=== PATIENT | female | born 1985 | race Two or more races ===

== ENCOUNTER 2025-01-16 15:28 | Emergency (ER) | payer SELFPAY ==
--- NOTE | 2025-01-16 15:56 | XR_ITS ---
Examination: Complete OB ultrasound greater than 14 weeks Date and time of exam: January 16, 2025 1611 hours INDICATIONS: Onset vaginal bleeding today Findings: Viable intrauterine single fetus with single amniotic sac presentation cephalic Cardiac motion 144 BPM Placenta posterior low lying grade 1 Umbilical cord insertion seen Amniotic fluid index 8.9 cm Cervix 3.6 cm Right ovary 2.5 cm arterial flow Left ovary 2.6 cm arterial flow. Composite estimated gestational age based on BPD, head circumference, abdominal circumference, femur length is 17 weeks 4 days Estimated weight 194.7 g. Survey of intracranial anatomy, spinal anatomy, abdominal anatomy, four-chamber heart performed with no abnormalities identified. Impression: Viable intrauterine gestation cephalic presentation.
[2025-01-16 15:58] VITALS: BP 126/81; PULSE 80; RESP 18; TEMP 36.8; O2SAT 98
[2025-01-16 15:59] VITALS: BMI 26.9
--- NOTE | 2025-01-16 16:17 | PD.EDVAGBL ---
ED OB Contraction Preg RMI/HPI General Chief complaint: Vaginal Bleeding Stated complaint: Vaginal bleeding today, 16 weeks OB Arrival date/time: 01/16/25 15:28 RME / HPI RME / HPI Narrative: DR. MCPHERSON MAIN ED EVALUATION: This section includes all my notes and documentations, including HPI, PE, and ED course.? Marcos Mcpherson MD HPI: 39 year old female who is ~16 weeks here with complaint of vaginal spotting today. No other complaints. ROS: All negative except as documented in HPI. Physical Exam: General:? Alert and oriented.? No acute distress when remaining still.? Eyes:? Conjunctivae and lids clear. ENT:? No nasal congestion.? ? Neck:? Supple. Heart:? RRR. Lungs:? No respiratory distress.? Good air movement.? No rhonchi, wheezing, rales.? Abdomen:? Soft and nontender.? Skin:? Warm and dry.? Neuro:? Alert and oriented X 3.? I reviewed all diagnostic test results. My review of the OB US report is?viable intrauterine . Blood tests unremarkable. UA showed positive leukocyte Estrace, 310 RBC, 412 WBC, and 1+ bacteria. At this point, diagnoses include threatened miscarriage and UTI. Recommend outpatient management. Based on my best medical judgment, made decision no further evaluation or treatment indicated at this time.? Patient understands and agrees to the discharge instructions customized and printed, see below. Discharge Instructions from Dr. Mcpherson printed for you: 1.? After evaluation, your baby is doing well with good cardiac activity. You have urinary tract infection. Hopefully this caused the bleeding. Take Macrobid to kill the germs causing the infection. Increase oral fluid and maintain clear urine. If dark or yellow, increase oral fluid. 2.? Based on ultrasound today, gestational age is 17 4/7 weeks. 3.? Only time will tell what will happen. If your symptoms, including bleeding, worsen, you can have a miscarriage. If your symptoms stop, you can have successful . 4.? If you do have a miscarriage, we won't be able to save your baby. Under 20-24 weeks, we can't save the baby. 5.? No sexual activity until cleared by a doctor taking care of you. 6.? See a private doctor on 01/20/2025 for recheck and further care. Ask to review all test results and official radiology reports, to make sure you receive all necessary follow-ups and monitoring. Including final urine culture results. 7.? Seek immediate medical care with intolerable pain, extremely heavy vaginal bleeding (soaking more than 3 pads per hour), or with any concerns. Instrucciones de michael de la Dra. Mcpherson impresas para usted: 1. Despu?s de la evaluaci?n, shepherd beb? se encuentra tarik y presenta raven buena actividad card?ney. Tiene raven infecci?n del tracto urinario. Es de esperar que esto haya causado el sangrado. [place] Macrobid para eliminar los g?rmenes que causan la infecci?n. Aumente la cantidad de l?quidos orales y mantenga la orina bryon. Si es oscura o amarilla, aumente la cantidad de l?quidos orales. 2. Seg?n la ecograf?a de hoy, la edad gestacional es de 17 4/7 semanas. 3. Solo el tiempo dir? qu? suceder?. Si derian s?ntomas, incluido el sangrado, empeoran, podr?a sufrir un aborto espont?lius. Si derian s?ntomas desaparecen, puede tener un embarazo exitoso. 4. Si sufre un aborto espont?luis, no podremos salvar a shepherd beb?. Antes de las 20-24 semanas, no podremos salvar al beb?. 5. No tenga relaciones sexuales hasta que el m?dico que la atienda lo autorice. 6. Consulte con un m?dico particular el 20/01/2025 para raven nueva revisi?n y atenci?n adicional. Solicite la revisi?n de todos los resultados de las pruebas y los informes radiol?gicos oficiales para asegurarse de recibir todos los seguimientos y monitoreo necesarios. Incluidos los resultados finales del urocultivo. 7. Busque atenci?n m?dica inmediata si presenta dolor insoportable, sangrado vaginal extremadamente abundante (que empape m?s de 3 toallas sanitarias por hora) o si tiene alguna inquietud. Marcos Mcpherson MD Related Data Previous Rx's ?Medication ?Instructions ?Recorded ciprofloxacin HCl 500 mg tablet 500 mg PO BID #10 tabs 07/23/19 (Cipro) nitrofurantoin 100 mg PO BID #14 caps 01/16/25 monohydrate/macrocrystals 100 mg capsule (Macrobid) Allergies Allergy/AdvReac Type Severity Reaction Status Date / Time No Known Allergies Allergy Verified 01/16/25 15:32 Course Quality Measures none Orders Category Date Time Status US OB >= 14 weeks Fetus Stat Exams 01/16/25 15:56 Completed Beta HCG,Quantitative Stat Lab 01/16/25 16:33 Completed Bilirubin,Direct Stat Lab 01/16/25 16:33 Completed CBC Stat Lab 01/16/25 16:33 Completed CMP [Comprehensive Metabolic Panel] Stat Lab 01/16/25 16:33 Completed Free T4 (Free Thyroxine) Stat Lab 01/16/25 16:33 Completed Magnesium Stat Lab 01/16/25 16:33 Completed Rh Testing Only Stat Lab 01/16/25 16:33 Completed TSH [Thyroid Stimulating Hormone] Stat Lab 01/16/25 16:33 Completed UA, C/S IF [Urinalysis, C/S if Indicated] Stat Lab 01/16/25 16:14 Completed Nitrofurantoin Macro [Macrobid] Med 01/16/25 17:15 Discontinued 100 mg PO X1 ONE Vital Signs Vital signs: Vital Signs Temperature 98.2 F 01/16/25 15:58 Pulse Rate 80 01/16/25 15:58 Respiratory Rate 18 01/16/25 15:58 Blood Pressure 126/81 01/16/25 15:58 Pulse Oximetry (%) 98 01/16/25 15:58 Oxygen Delivery Method Room Air 01/16/25 15:58 Vaginal Bleeding MDM Narrative MDM Narrative: I, Shanon Steward, am scribing for and in the presence of Dr. Mcpherson. 39 year old female who is ~16 weeks here with complaint of vaginal spotting today. No other complaints. Patient data External records reviewed:: [facility] previous records Clinical information provided by:: patient Social determinants that could affect healthcare access:: none Patient has the following chronic illnesses:: Kidney stones How is presenting disease/condition affected by chronic disease/condition?: uneffected by Evaluation data The following diagnostics were reviewed and interpreted by me:: lab results and radiology exam(s) Lab and/or radiology exams considered but not ordered:: none Interpretation Summary: I reviewed all diagnostic test results. My review of the OB US report is?viable intrauterine . Blood tests unremarkable. UA showed positive leukocyte Estrace, 310 RBC, 412 WBC, and 1+ bacteria. Medications / Prescriptions Medications or Prescriptions considered but not ordered:: none Medication administrations:: Medication Administration History Discontinued Medications Nitrofurantoin Macrocrystals (Nitrofurantoin Macro 100 Mg Capsule) 100 mg PO X1 ONE Stop: 01/16/25 17:16 Last Admin: 01/16/25 17:39 Dose: 100 mg Documented By: Macrobid 100 mg Consultations Consultation(s) initiated? (list below): No Diagnosis Vaginal Bleeding Differential Diagnosis: missed , threatened , dysfunctional uterine bleeding, menometrorrhagia, incomplete , ectopic without intrauterine and vaginal bleeding Most likely diagnosis given after review of the tests above:: Threatened miscarriage and UTI Admission Indicated Admission indicated?: not indicated Explain why admission is indicated or not indicated:: With no serious condition needing emergent intervention, there was no indication for admission. Admission Request Was there a request for admission?: No Disposition Plan Disposition Plan: Discharge Discharge Attestation Discharge Attestation: The patient and all family members were given an opportunity to ask questions and understood the discharge instructions. Discharge instructions specifically effects, indications for sooner follow up or return to the emergency department, and the expected course of current diagnosis. Patient condition: Stable Discharge Plan Plan Patient Disposition: HOME (Self Care) Prescriptions/Referrals Prescriptions/Med Rec: New nitrofurantoin monohyd/m-cryst [Macrobid] 100 mg capsule 100 mg PO BID Qty: 14 0RF Rx Instructions: must administer with a meal/food No Action ciprofloxacin HCl [Cipro] 500 mg tablet 500 mg PO BID Qty: 10 0RF Referrals: Jeronimo Conde MD [Primary Care Provider] - In 1 week Problem List Clinical Impression: Threatened miscarriage, UTI (urinary tract infection) Patient/Caregiver Discharge Instructions Discharge Activity: activity as tolerated Education Materials: ED Possible Miscarriage ..., ED CYSTITIS Female Adult Additional Instructions: Discharge Instructions from Dr. Mcpherson printed for you: 1.? After evaluation, your baby is doing well with good cardiac activity. You have urinary tract infection. Hopefully this caused the bleeding. Take Macrobid to kill the germs causing the infection. Increase oral fluid and maintain clear urine. If dark or yellow, increase oral fluid. 2.? Based on ultrasound today, gestational age is 17 4/7 weeks. 3.? Only time will tell what will happen. If your symptoms, including bleeding, worsen, you can have a miscarriage. If your symptoms stop, you can have successful . 4.? If you do have a miscarriage, we won't be able to save your baby. Under 20-24 weeks, we can't save the baby. 5.? No sexual activity until cleared by a doctor taking care of you. 6.? See a private doctor on 01/20/2025 for recheck and further care. Ask to review all test results and official radiology reports, to make sure you receive all necessary follow-ups and monitoring. Including final urine culture results. 7.? Seek immediate medical care with intolerable pain, extremely heavy vaginal bleeding (soaking more than 3 pads per hour), or with any concerns. Instrucciones de michael de brittanie Mcpherson impresas para usted: 1. Despu?s de la evaluaci?n, shepherd beb? se encuentra tarik y presenta raven buena actividad card?ney. Tiene raven infecci?n del tracto urinario. Es de esperar que esto haya causado el sangrado. [place] Macrobid para eliminar los g?rmenes que causan la infecci?n. Aumente la cantidad de l?quidos orales y mantenga la orina bryon. Si es oscura o amarilla, aumente la cantidad de l?quidos orales. 2. Seg?n la ecograf?a de hoy, la edad gestacional es de 17 4/7 semanas. 3. Solo el tiempo dir? qu? suceder?. Si derain s?ntomas, incluido el sangrado, empeoran, podr?a sufrir un aborto espont?luis. Si derian s?ntomas desaparecen, puede tener un embarazo exitoso. 4. Si sufre un aborto espont?luis, no podremos salvar a shepherd beb?. Antes de las 20-24 semanas, no podremos salvar al beb?. 5. No tenga relaciones sexuales hasta que el m?dico que la atienda lo autorice. 6. Consulte con un m?dico particular el 20/01/2025 para raven nueva revisi?n y atenci?n adicional. Solicite la revisi?n de todos los resultados de las pruebas y los informes radiol?gicos oficiales para asegurarse de recibir todos los seguimientos y monitoreo necesarios. Incluidos los resultados finales del urocultivo. 7. Busque atenci?n m?dica inmediata si presenta dolor insoportable, sangrado vaginal extremadamente abundante (que empape m?s de 3 toallas sanitarias por hora) o si tiene alguna inquietud. Print Language: Thai Stand Alone Forms: [employer] Award Info., Patient Portal Info Letter
[2025-01-16 16:33] LABS: Collection Type, Urine Clean Catch
[2025-01-16 16:46] LABS: Bacteria,Urine 1+; Bilirubin,Urine Negative (Negative); Blood,Urine 3+ (Negative); Clarity,Urine Turbid (Clear/Hazy); Culture Indicated,Urine Contaminated; Glucose, Urine Negative (Negative); Ketones,Urine Trace (Negative); Leukocyte Esterase,Urine Positive (Negative); Nitrite,Urine Negative (Negative); Protein,Urine 1+ (Neg - Trace); RBC,Urine 310 /hpf (0-3); Specific Gravity,Urine 1.024 (1.001-1.035); Squamous Epithelial Cell,Urine 22 /hpf (0-5); Urobilinogen,Urine Negative mg/dL (0.0-1.0); WBC,Urine 412 /hpf (0-5)
[2025-01-16 16:48] LABS: Basophils % (Auto) 0 % (0-2.5); Eosinophils # (Auto) 0.1 Thou/mm3 (0.0-0.5); Eosinophils % (Auto) 1 % (0-10); Hematocrit 35.2 % (36.0-46.0); Hemoglobin 12.1 g/dL (12.0-16.0); Immature Granulocytes % (Auto) 1 % (0-0); Immature Granulocytes Auto 0.07 Thou/mm3 (0.00-0.00); Lymphocytes # (Auto) 2.5 Thou/mm3 (1.0-4.8); Lymphocytes % (Auto) 24 % (10-50); Mean Corpuscular HGB Conc 34.4 g/dl (31.0-37.0); Mean Corpuscular Hemoglobin 28.8 pg (25.0-35.0); Mean Corpuscular Volume 84 fL (80-100); Monocytes # (Auto) 0.5 Thou/mm3 (0.0-0.8); Monocytes % (Auto) 5 % (0-12); Neutrophils # (Auto) 7.1 Thou/mm3 (1.8-7.7); Neutrophils % (Auto) 69 % (37-80); Nucleated Red Blood Cell % 0 /100 WBC (0); Platelet Count 233 Thou/mm3 (140-440); RDW Standard Deviation 40.8 fL (36.4-46.3); White Blood Count 10.2 Thou/mm3 (3.6-11.0)
[2025-01-16 16:50] LABS: Color,Urine Amber (Lt Yel-Yel)
[2025-01-16 17:39] LABS: Alanine Aminotransferase 12 U/L (10-49); Albumin, Serum 3.9 gm/dL (3.5-5.0); Albumin/Globulin Ratio 1.5 (1.2-2.2); Alkaline Phosphatase 67 U/L (46-116); Anion Gap 9 (7-16); Aspartate Amino Transferase 16 U/L (0-34); BUN/Creatinine Ratio 14 Ratio (12-20); Beta HCG,Quantitative 30724 mIU/mL (<5.0); Bilirubin,Direct < 0.1 mg/dL (0.0-0.3); Bilirubin,Total 0.3 mg/dL (0.3-1.2); Blood Urea Nitrogen 7 mg/dL (9-23); Calcium (Corrected) 9.1 mg/dL (8.5-10.1); Carbon Dioxide 20.9 mMol/L (20.0-31.0); Chloride 108 mMol/L (98-107); Creatinine (Component) 0.5 mg/dL (0.6-1.3); Estimated Creatinine Clearance 142.1 mL/min (>60); Free T4 (Free Thyroxine) 0.91 ng/dL (0.89-1.76); Globulin 2.6 gm/dL (2.3-3.5); Glucose 83 mg/dL (74-106); Magnesium 1.6 mg/dL (1.6-2.6); Osmolality,Calculated 272 (275-295); Potassium 3.5 mMol/L (3.4-5.1); Sodium 138 mMol/L (136-145); Thyroid Stimulating Hormone 1.68 uIU/mL (0.55-4.78); Total Protein 6.5 gm/dL (5.7-8.2); eGFR > 60 See Note
[2025-01-16] MEDS: NITROFURANTOIN MACRO 100 MG CAPSULE PO (17:39)
== END 2025-01-16 18:38 | disposition home or self-care (01) ==
PROVIDERS: Emergency Provider Emergency Medicine; PCP Obstetrics & Gynecology
DX: O20.0 Threatened abortion (principal); O23.42 Unspecified infection of urinary tract in pregnancy, second trimester; N39.0 Urinary tract infection, site not specified; Z3A.17 17 weeks gestation of pregnancy
CPT/HCPCS: 36415; 76805; 80053; 81001; 82248; 83735; 84439; 84443; 84702; 85025; 86901; 99284; A9270

== ENCOUNTER 2025-02-22 18:41 | Emergency (ER) | payer MEDICAID, SELFPAY ==
[2025-02-22 18:51] VITALS: BP 132/85; PULSE 96; RESP 18; TEMP 37.3; O2SAT 98
[2025-02-22] MEDS: ACETAMINOPHEN 325 MG TABLET 650 MG PO (19:20)
[2025-02-22] MEDS: AMOXICILLIN 250 MG CAPSULE 500 MG PO (19:20)
--- NOTE | 2025-02-22 20:21 | PD.EDDENTL ---
ED Dental RME/HPI General Chief complaint: Dental/Oral/Throat Stated complaint: LEFT TOOTH PAIN x 3 DAYS Time Seen by Provider: 02/22/25 18:45 Arrival date/time: 02/22/25 18:41 This is a case of 39-year-old female who came into the emergency room due to left upper dental pain for 3 days patient is 20 weeks 7 para 6 with regular checkup patient has no OB symptoms no vaginal discharge no pelvic cramping no vaginal spotting or bleeding persistent of dental pain this patient decided to sought consult in the emergency room Limitations: no limitations Related Data Previous Rx's ?Medication ?Instructions ?Recorded ciprofloxacin HCl 500 mg tablet 500 mg PO BID #10 tabs 07/23/19 (Cipro) nitrofurantoin 100 mg PO BID #14 caps 01/16/25 monohydrate/macrocrystals 100 mg capsule (Macrobid) acetaminophen 325 mg tablet 650 mg (2 x 325 mg) PO Q6H PRN 02/22/25 (Tylenol) pain #20 tabs amoxicillin 500 mg capsule 500 mg PO Q8H 10 days #30 caps 02/22/25 Allergies Allergy/AdvReac Type Severity Reaction Status Date / Time No Known Allergies Allergy Verified 02/22/25 18:44 Review of Systems Review of Systems Systems Reviewed: All systems reviewed, normal except as documented Constitutional Constitutional: Reports system reviewed and no additional complaints, except as documented, Reports as per HPI and Denies headache(s) ENT Ears, Nose, Mouth, and Throat: Reports system reviewed and no additional complaints, except as documented, Reports as per HPI, Denies abnormal hearing, Denies bleeding gums, Denies change in voice, Reports dental pain, Denies disequilibrium, Denies dizziness, Denies dry mouth, Denies dysphagia, Denies ear discharge, Denies otalgia, Denies epistaxis, Denies facial pain, Denies halitosis, Denies headache(s), Denies hearing loss, Denies hoarseness, Denies lip swelling, Denies mouth lesions, Denies mouth pain, Denies nasal congestion, Denies nasal discharge, Denies nasal obstruction, Denies nasal trauma, Denies neck mass, Denies neck pain, Denies nose pain, Denies odynophagia, Denies post nasal drip, Denies sinus pain, Denies sinus pressure, Denies sore throat, Denies throat swelling, Denies tinnitus, Denies tongue swelling and Denies vertigo Cardiovascular Cardiovascular: Reports system reviewed and no additional complaints, except as documented and Reports as per HPI Respiratory Respiratory: Reports system reviewed and no additional complaints, except as documented and Reports as per HPI Gastrointestinal Gastrointestinal: Reports system reviewed and no additional complaints, except as documented, Reports as per HPI, Denies dysphagia and Denies odynophagia Musculoskeletal Musculoskeletal: Reports system reviewed and no additional complaints, except as documented, Reports as per HPI and Denies neck pain Neurologic Neurologic: Reports system reviewed and no additional complaints, except as documented, Reports as per HPI, Denies abnormal hearing, Denies disequilibrium, Denies dizziness, Denies headache(s) and Denies vertigo Allergic/Immunologic Allergic/Immunologic: Denies lip swelling, Denies throat swelling and Denies tongue swelling Past Medical History Past Medical History NEUROLOGIC: Negative Neurological Disorders CARDIAC: Negative Cardiac Disorders or Congestive Heart Failure RESPIRATORY: Negative Chronic Obstructive Pulmonary Disease (COPD) GASTROINTESTINAL: Negative Gastrointestinal Disorders or Hepatitis GENITOURINARY: Positive Genitourinary Disorders and Kidney Stones (bilateral x2); Negative Renal Disease MUSCULOSKELETAL: Negative Musculoskeletal Disorders ENDOCRINE: Negative Endocrine Disorders, Diabetes Mellitus Type 1 or Diabetes Mellitus Type 2 HEMATOLOGIC: Negative Blood Disorders OTHER HISTORY: Positive Hospitalization; Negative Autoimmune Disease, Down Syndrome, Developmental Delay, Shingles, Falls, Blood Transfusions, Organ Transplant, MRSA, VRSA, Vancomycin-Resistant Enterococci, Human Immunodeficiency Virus (HIV), Chicken Pox, Measles, Mumps, Rubella (Upper Sor[place] Measles), Pertussis, Clostridium Difficile or Cancer Family History FAMILY HISTORY: Negative Family Psychiatric Problems, Family Respiratory Disorders, Family Cardiac Disorders, Family Gastrointestinal Problems, Family Cancer, Family Surgery or Family Anesthesia Reaction Surgical History SURGICAL: Negative Cardiac Surgery, Endocrine Surgery, Ear Surgery, Abdominal Surgery, Nephrectomy, Joint Replacement, Neurologic Surgery, Mastectomy, Section or Organ Transplant Social History SMOKING STATUS: Never smoker SUBSTANCE USE: does not use ED Exam General Limitations: Present no limitations General appearance: Present alert, in no apparent distress and other (Is awake alert oriented not in distress nontoxic looking) Head Head exam: Present atraumatic, normocephalic and normal inspection Eye Eye exam: Present normal appearance, PERRL and EOMI ENT ENT exam: Present normal exam, normal oropharynx and mucous membranes moist Expanded ENT Exam Teeth exam: Present dental caries (16), fractured tooth # (16) and dental tenderness # (16); Absent gingival swelling Teeth numbered:  1. Fractured (Tooth #16), Dental Tenderness (Tooth #16) and Other (Mild tenderness on the tooth #16 mild swelling of the gum but no abscess mild redness) Neck Neck exam: Present normal inspection, full ROM and trachea midline Chest Chest inspection: Present normal inspection and symmetric chest wall rise Respiratory Respiratory exam: Present normal lung sounds bilaterally; Absent respiratory distress, wheezes, stridor, accessory muscle use or prolonged expiratory phase Cardiovascular Cardiovascular exam: Present regular rate and normal rhythm; Absent bradycardia, tachycardia, irregular rhythm or normal heart sounds Abdominal Exam Abdominal exam: Present soft, normal bowel sounds and other (Gravid uterus) Extremities Exam Extremities exam: Present normal inspection and full ROM Back Exam Back exam: Present normal inspection and full ROM Neurological Exam Neurological exam: Present alert, oriented X3, CN II-XII intact, normal gait and reflexes normal; Absent motor sensory deficit Psychiatric Psychiatric exam: Present normal affect and normal mood Skin Skin exam: Present warm, dry, intact and normal color Course Quality Measures none Orders Category Date Time Status Acetaminophen Tab [Tylenol Tab] Med 02/22/25 19:08 Discontinued 650 mg PO X1 ONE Amoxicillin Cap [Amoxil Cap] Med 02/22/25 19:08 Discontinued 500 mg PO X1 ONE Vital Signs Vital signs: Vital Signs Temperature 99.1 F 02/22/25 18:51 Pulse Rate 96 02/22/25 18:51 Respiratory Rate 18 02/22/25 18:51 Blood Pressure 132/85 H 02/22/25 18:51 Pulse Oximetry (%) 98 02/22/25 18:51 Oxygen Delivery Method Room Air 02/22/25 18:51 Patient is afebrile not tachycardic not tachypneic BP stable not hypoxic oxygen saturation is 98% in room air Dental / Oral MDM Narrative MDM Narrative:: This is a case of 39-year-old female who came into the emergency room due to left upper dental pain for 3 days patient is 20 weeks 7 para 6 with regular checkup patient has no OB symptoms no vaginal discharge no pelvic cramping no vaginal spotting or bleeding persistent of dental pain this patient decided to sought consult in the emergency room physical examination patient is awake alert oriented not in distress nontoxic looking well-hydrated well-nourished gravid uterus patient noted to have a tenderness on the tooth #16 with fracture tooth #16 and dental cavity gum is slightly swollen and red but no abscess no swelling of the left mandible no facial swelling no drooling of saliva the rest of the physical examination and neurological exam is normal and unremarkable based on my physical exam and history patient symptoms suggestive of tooth infection but no abscess patient was discharged with amoxicillin and patient was advised to take Tylenol only for pain which is safe for patient was advised to see a dentist for reevaluation and for dental procedure and follow-up with OB for checkup patient will follow-up with PCP in 2 days for reevaluation and for any worsening symptoms return precaution in the emergency room was advised Patient was discharged with comfortable condition walking with stable gait. Patient verbalized no further complains explained diagnosis and answered patient question. Patient is comfortable with the proposed management plan including the need to follow up with his/her primary care physician and any specialist if applicable Discussed patient for any urgent condition or worsening sx, He/She needed to go to emergency room immediately or call 911. Patient acknowledge the responsibility to follow up as instructed and to monitor her/his symptoms. For any persistence of the symptoms for more than 3-5 days return precaution advised. Discussed the result of the test and was given printed discharge instruction Patient data External records reviewed:: [facility] previous records Clinical information provided by:: patient Social determinants that could affect healthcare access:: none (None) Patient has the following chronic illnesses:: None How is presenting disease/condition affected by chronic disease/condition?: no chronic disease Evaluation data The following diagnostics were reviewed and interpreted by me:: other (specify) (None) Lab and/or radiology exams considered but not ordered:: None Interpretation Summary: None Medications / Prescriptions Medications or Prescriptions considered but not ordered:: Given Medication administrations:: Medication Administration History Discontinued Medications Acetaminophen (Acetaminophen 325 Mg Tablet) 650 mg PO X1 ONE Stop: 02/22/25 19:09 Last Admin: 02/22/25 19:20 Dose: 650 mg Documented By: OA Amoxicillin (Amoxicillin 250 Mg Capsule) 500 mg PO X1 ONE Stop: 02/22/25 19:09 Last Admin: 02/22/25 19:20 Dose: 500 mg Documented By: OA Given Consultations Consultation(s) initiated? (list below): No Diagnosis Dental Differential Diagnosis: gingival abscess, dental caries, dental abscess, fracture of tooth and aphthous ulcer Most likely diagnosis given after review of the tests above:: Tooth infection Admission Indicated Admission indicated?: not indicated (Not indicated) Explain why admission is indicated or not indicated:: Not indicated Admission Request Was there a request for admission?: No Admission Attestation Admission request attestation: Not indicated Disposition Plan Disposition Plan: Discharge Discharge Attestation Discharge Attestation: The patient and all family members were given an opportunity to ask questions and understood the discharge instructions. Discharge instructions specifically effects, indications for sooner follow up or return to the emergency department, and the expected course of current diagnosis. Patient condition: Stable Discharge Plan Plan Patient Disposition: HOME (Self Care) Patient condition on transfer: Stable Prescriptions/Referrals Prescriptions/Med Rec: New amoxicillin 500 mg capsule 500 mg PO Q8H 10 Days Qty: 30 0RF acetaminophen [Tylenol] 325 mg tablet 650 mg PO Q6H PRN (Reason: pain) Qty: 20 0RF No Action ciprofloxacin HCl [Cipro] 500 mg tablet 500 mg PO BID Qty: 10 0RF nitrofurantoin monohyd/m-cryst [Macrobid] 100 mg capsule 100 mg PO BID Qty: 14 0RF Rx Instructions: must administer with a meal/food Problem List Clinical Impression: Tooth infection, Fracture of tooth, Patient/Caregiver Discharge Instructions Education Materials: Preg 2nd Trimester, ED Tooth Abscess Additional Instructions: Follow-up with your primary care physician in 2 days for reevaluation it is very important to see a dentist in 2 days for reevaluation and possible dental procedure it is also important to see your OB admissions supervisor for checkup worsening symptoms or any emergent concern such as fever chills vaginal bleeding abdominal pain vaginal spotting vaginal discharge etc. return to the emergency room immediately or call 911 finish the course of antibiotic only Tylenol as needed for pain continue taking multivitamins Print Language: Colombian Stand Alone Forms: [employer] Award Info., Patient Portal Info Letter PA/[employer] HR DEVELOPER Supervising Physician PA/[employer] HR DEVELOPER Supervising Physician: dr barrios
== END 2025-02-22 19:30 | disposition home or self-care (01) ==
PROVIDERS: Emergency Provider Emergency Medicine
DX: O99.891 Other specified diseases and conditions complicating pregnancy (principal); S02.5XXA Fracture of tooth (traumatic), initial encounter for closed fracture; K04.7 Periapical abscess without sinus; X58.XXXA Exposure to other specified factors, initial encounter; Z3A.20 20 weeks gestation of pregnancy
CPT/HCPCS: 99283; A9270

== ENCOUNTER 2025-05-08 20:53 | Observation (INO) | payer MEDICAID, SELFPAY ==
[2025-05-08] VITALS (25 sets, daily range): BP systolic 127–138; BP diastolic 63–81; PULSE 99–112; RESP 16–99; TEMP 37.1; O2SAT 92–100; BMI 34.3
[2025-05-08 21:33] LABS: ROM Kit Exp Date# 01/18/28; ROM Kit Lot # 58104371; ROM Swab Mixed By: KE; Rupture of Fetal Membranes Negative (Negative); Swb Mxed in Solvent 1 min? Yes
--- NOTE | 2025-05-08 21:45 | XR_ITS ---
Examination: Complete OB ultrasound greater than 14 weeks Date and time of exam: May 08, 2025 at 10:11 p.m. INDICATIONS: Leaking amniotic fluid today Findings: Viable intrauterine single fetus with single amniotic sac presentation cephalic Cardiac motion 162 bpm Placenta fundal grade 2 Umbilical cord insertion 3 vessels seen Amniotic fluid index 9.0 cm spine anterior Cervix 3.1 cm. Composite estimated gestational age based on BPD, head circumference, abdominal circumference, femur length is 33 weeks 6 days Estimated weight 2263 g. Survey of intracranial anatomy, spinal anatomy, abdominal anatomy, four-chamber heart performed with no abnormalities identified. Impression: Viable intrauterine gestation in cephalic presentation
[2025-05-08 22:36] LABS: Collection Type, Urine Clean Catch
[2025-05-08 22:38] LABS: Basophils # (Auto) 0.0 Thou/mm3 (0.0-0.2); Basophils % (Auto) 0 % (0-2.5); Eosinophils # (Auto) 0.1 Thou/mm3 (0.0-0.5); Eosinophils % (Auto) 1 % (0-10); Hematocrit 35.0 % (36.0-46.0); Hemoglobin 11.7 g/dL (12.0-16.0); Immature Granulocytes Auto 0.10 Thou/mm3 (0.00-0.00); Lymphocytes # (Auto) 2.3 Thou/mm3 (1.0-4.8); Lymphocytes % (Auto) 25 % (10-50); Mean Corpuscular HGB Conc 33.4 g/dl (31.0-37.0); Mean Corpuscular Hemoglobin 29.3 pg (25.0-35.0); Mean Corpuscular Volume 88 fL (80-100); Monocytes # (Auto) 0.6 Thou/mm3 (0.0-0.8); Monocytes % (Auto) 7 % (0-12); Neutrophils # (Auto) 6.0 Thou/mm3 (1.8-7.7); Neutrophils % (Auto) 66 % (37-80); Nucleated Red Blood Cell # 0.00 Thou/mm3 (0.00-0.00); Nucleated Red Blood Cell % 0 /100 WBC (0); Platelet Count 257 Thou/mm3 (140-440); RDW Standard Deviation 40.9 fL (36.4-46.3); Red Blood Count 4.00 Miln/mm3 (4.00-5.20); White Blood Count 9.1 Thou/mm3 (3.6-11.0)
[2025-05-08] MEDS: BETAMET ACET/BETAMET NA PH (Celestone) 6 MG/ML VIAL 12 MG IM (22:41)
[2025-05-08] MEDS: RINGERS LACTATED 1000 ML 1,000 ML 100 ML IV (22:42)
[2025-05-08] MEDS: Ampicillin Inj 2,000 MG in SODIUM CHLORIDE 0.9% (POP) 100 ML 200 MG IV (22:42)
[2025-05-08 22:48] LABS: Amorphous Crystals,Urine Present (Absent); Bacteria,Urine Rare; Bilirubin,Urine Negative (Negative); Blood,Urine Negative (Negative); Budding Yeast,Urine Present; Clarity,Urine Turbid (Clear/Hazy); Color,Urine Lt-Yellow (Lt Yel-Yel); Glucose, Urine Negative (Negative); Ketones,Urine Negative (Negative); Leukocyte Esterase,Urine Positive (Negative); Nitrite,Urine Negative (Negative); PH,Urine 7.5 (5.0-7.0); Protein,Urine Negative (Neg - Trace); RBC,Urine 8 /hpf (0-3); Specific Gravity,Urine 1.010 (1.001-1.035); Squamous Epithelial Cell,Urine 3 /hpf (0-5); Urobilinogen,Urine Negative mg/dL (0.0-1.0); WBC,Urine 98 /hpf (0-5)
[2025-05-08 22:54] LABS: Alanine Aminotransferase 8 U/L (10-49); Albumin, Serum 4.0 gm/dL (3.5-5.0); Albumin/Globulin Ratio 1.3 (1.2-2.2); Alkaline Phosphatase 109 U/L (46-116); Anion Gap 11 (7-16); Aspartate Amino Transferase 18 U/L (0-34); BUN/Creatinine Ratio 10 Ratio (12-20); Bilirubin,Total 0.2 mg/dL (0.3-1.2); Blood Urea Nitrogen 6 mg/dL (9-23); Calcium 9.4 mg/dL (8.3-10.6); Calcium (Corrected) 9.4 mg/dL (8.5-10.1); Carbon Dioxide 21.8 mMol/L (20.0-31.0); Chloride 107 mMol/L (98-107); Creatinine (Component) 0.6 mg/dL (0.6-1.3); Estimated Creatinine Clearance 110.1 mL/min (>60); Globulin 3.0 gm/dL (2.3-3.5); Glucose 105 mg/dL (74-106); Osmolality,Calculated 277 (275-295); Potassium 3.4 mMol/L (3.4-5.1); Sodium 140 mMol/L (136-145); Total Protein 7.0 gm/dL (5.7-8.2); eGFR > 60 See Note
[2025-05-08 22:58] LABS: Amphetamine/Metham Scrn,Ur OB Negative (Negative); Benzoylecgonine Screen, Ur OB Negative (Negative); Opiate Screen,Urine OB Negative (Negative); Protein Total, Random Urine 17 mg/dL (1-14); THC Screen,Urine OB Negative (Negative)
[2025-05-08 23:31] LABS: Syphilis Nonreactive (Nonreactive)
[2025-05-08 23:40] LABS: Creatinine,Random Urine 41 mg/dL (30-125)
[2025-05-09] VITALS (126 sets, daily range): BP systolic 103–141; BP diastolic 54–80; PULSE 87–130; RESP 16–18; TEMP 36.5–37.4; O2SAT 91–100
--- NOTE | 2025-05-09 01:57 | PD.LDANTE ---
Documentation for date of: 05/09/25 OB Labor/Induct. HPI History of Present Illness Chief complaint: c/o SROM : 6 Para: 6 Term pregnancies: 5 pregnancies: 0 Living children: 5 History of Abortions: Spontaneous and Elective: 0 History of Vaginal deliveries: 6 History of sections: No History of : No CYNDI: 06/19/25 Gestational Age (weeks): 34 Gestational Age (days): 1 History of present illness: patient has Grossly SROM History of Present Adequate Care: Yes Labs Maternal Blood Type: O Pos Labs: Negative: RPR, Hepatitis B, Rubella Titre, HIV, Chlamydia and Gonorrhea and Unknown: Herpes Type 1, Herpes Type 2, Group Beta Strep and Covid-19 Review of Systems Review of Systems Systems Reviewed: All systems reviewed, normal except as documented Past Medical History Past Medical History GENITOURINARY: Positive Kidney Stones Surgical History SURGICAL: Negative Section Social History SMOKING STATUS: Never smoker SUBSTANCE USE: does not use ALCOHOL: Never Travel History EBOLA RISK: No Past Medical History Comments PMH COMMENT: Advanced maternal age and Grand multipara H/o kidney stones and hydronephrosis Meds Home Medications and Allergies Home Medications ?Medication ?Instructions ?Recorded ?Confirmed ?Type vit no.95-ferrous 1 tab PO DAILY 05/08/25 05/08/25 History fumarate 28 mg-folic acid 800 mcg tablet () Allergies Allergy/AdvReac Type Severity Reaction Status Date / Time No Known Allergies Allergy Verified 05/08/25 21:23 OB Exam Physical Exam Vital signs: Temp Pulse Resp BP Pulse Ox 98.5 F 113 H 16 126/62 98 05/09/25 00:35 05/09/25 01:13 05/09/25 00:35 05/09/25 01:13 05/09/25 01:54 Narrative: Size equal to dates uterus non tender Occasional/ contractions non tender FHR is category 1 feta presentation is vertex/ breech/transverse OB Results Labs 05/08/25 22:17 05/08/25 22:17 Labs: Short CBC 05/08/25 Range/Units 22:17 WBC 9.1 (3.6-11.0) Thou/mm3 Hgb 11.7 L (12.0-16.0) g/dL Hct 35.0 L (36.0-46.0) % Plt Count 257 (140-440) Thou/mm3 BMP 05/08/25 22:17 Sodium 140 Potassium 3.4 Chloride 107 Carbon Dioxide 21.8 BUN 6 L Creatinine 0.6 Glucose 105 Calcium 9.4 Liver Function 05/08/25 Range/Units 22:17 Total Bilirubin 0.2 L (0.3-1.2) mg/dL AST 18 (0-34) U/L ALT 8 L (10-49) U/L Alkaline Phosphatase 109 (46-116) U/L Albumin 4.0 (3.5-5.0) gm/dL Urine 05/08/25 Range/Units 22:17 Urine Color Lt-Yellow (Lt Yel-Yel) Urine Clarity Turbid A (Clear/Hazy) Urine pH 7.5 H (5.0-7.0) Ur Specific Morris 1.010 (1.001-1.035) Urine Protein Negative (Neg - Trace) Urine Glucose (UA) Negative (Negative) Impressions Impression: 39 years old at 34.2 weeks AMA, Grossly SROM at 2020 on 05/08/2025 and has occasional contractions / PPROM at 34.1 weeks Bpis at 138/80's and PE labs are negative Started on procardia 10 mgm po q 4 hours and betamethasone for lung maturity and Ampicillin for prophylaxis . after the second dose of betamethasone , plan/consider delivery OB Assessment & Plan Assessment and Plan (1) premature rupture of membranes (PPROM) with unknown onset of labor: Status: Acute (2) Advanced maternal age (AMA) in : Status: Acute (3) Grand multiparity with problem: Status: Acute Additional Plan Additional Plan Comment: see Ob assessment and plan
[2025-05-09] MEDS: Ampicillin Inj 1,000 MG in SODIUM CHLORIDE 0.9% (Popper) 50 ML 50 MG IV (03:16)
--- NOTE | 2025-05-09 07:26 | XR_ITS ---
EXAMINATION: age Limited TECHNIQUE: Limited transabdominal sonographic images pelvis Date and time: May 09, 2025, 0818 hours INDICATIONS: History leaking amniotic fluid FINDINGS: Viable intrauterine gestation in cephalic presentation. Cardiac motion 144 bpm. Amniotic fluid index 10.1 cm IMPRESSION: Viable intrauterine gestation in cephalic presentation Amniotic fluid index 10.1 cm
[2025-05-09 08:07] LABS: ROM Kit Lot # 58106258; ROM Swab Mixed By: FS; Swb Mxed in Solvent 1 min? Yes
[2025-05-09 08:08] LABS: Rupture of Fetal Membranes Negative (Negative)
--- NOTE | 2025-05-09 09:08 | PD.LDPN ---
Documentation for date of: 05/09/25 OB Labor Progress Note Pelvic Exam Dilation (cm): 1 Effacement (%): 40 station: -3 Amniotic membrane status: Intact Contractions Monitor mode: External Contraction frequency: q4-5 Contraction intensity: Mild Status status: Category l Assessment and Plan Comments: I assumed care of Wanda at 0700 this morning. In brief, she is a 39yo with SIUP at 34w2d who presented last night with concern for loss of fluid. She was noted by Dr. Galloway to have gross rupture of membranes , but NIMISHA was 9cm and Amnisure testing was negative. She was started on Ampicillin, Nifedipine and given 1st dose of betamethasone. Overnight, she has continued to state that she is leaking fluid per vagina and RN notes she has had pads changed that smell like urine and are completely soaked with yellow fluid (more than what would be expected for typical leaking with ROM). She has had intermittent ctx that are not strong. She has felt normal movement. No vaginal bleeding. She has remained afebrile and normotensive. FHRT remains Cat I. Given that patient had NIMISHA 9cm and negative Amnisure on admission, I requested for ultrasound and Amnisure to be repeated this morning. Repeat NIMISHA has increased from 9cm to 10.1cm. Amnisure is again negative. SCE by me this mornin/40/3, amniotic sac palpable and no fluid return with very gentle ballotment Via Luxembourgish phone descriptive catalog librarian, I explicitly asked patient if she believes she is leaking fluid from her vagina which is soaking pads or if the fluid is urine. She is adamant that the fluid is coming from the vagina. I then called SUNITA Moore at [facility] and spoke to him about the entire clinical picture. He agrees that it seems unlikely that patient has ROM given increase in NIMISHA and negative Amnisure. He recommended repeating testing tomorrow morning, giving patient option to stay for observation or go home in the meantime. I then spoke with patient via Luxembourgish phone descriptive catalog librarian again, and gave her the two options. Since she has a history of home in 2019 at 35 weeks, she strongly desires to stay inpatient with repeat testing tomorrow. We agreed on plan of care and I gave her the opportunity to ask any questions. Plan: -Continue observation on L&D -NST q4hr -Stop nifedipine. Stop ampicillin. -Give next betamethasone dose this evening 24hr from prior -Regular diet -Repeat NIMISHA tomorrow morning -Wanda was transferring care from Dr. Conde to the [place] [facility] and had appt scheduled today with KECIA Warren. Will need appointment moved if discharged tomorrow. Lory Holt MD
[2025-05-09] MEDS: BETAMET ACET/BETAMET NA PH (Celestone) 6 MG/ML VIAL 12 MG IM (23:38)
[2025-05-10] VITALS (8 sets, daily range): BP systolic 100–102; BP diastolic 57–59; PULSE 77–107; RESP 16–17; TEMP 36.8–37.1; O2SAT 95–97
--- NOTE | 2025-05-10 08:28 | XR_ITS ---
EXAMINATION: age Limited TECHNIQUE: Limited transabdominal sonographic images pelvis. Date and time: May 10, 2025, 0851 hours INDICATIONS: History leaking amniotic fluid. FINDINGS: Viable intrauterine gestation in cephalic presentation. Cardiac motion 138 bpm. Amniotic fluid index 8.5 cm IMPRESSION: Viable intrauterine gestation Amniotic fluid index 8.5 cm
--- NOTE | 2025-05-10 10:21 | ESDS_ITS ---
DS: Providers Provider Date of admission: 05/08/25 21:54 Primary care physician: Physician No Primary/Family Admitting Provider: Lory Galloway MD Attending Provider on Admission: Lory Holt MD Attending Provider on DC: Lory Holt MD Discharging Provider: Lory Holt MD DS: Diagnosis Discharge Diagnosis (1) Feared condition not demonstrated: Status: Acute (2) Grand multiparity with problem: Status: Acute (3) Advanced maternal age (AMA) in : Status: Acute Problem List Completed Was Problem List Reviewed/Reconciled?: Yes Summary/Hosp Course Brief History: I assumed care of Wanda at 0700 on 05/09/25. She is a 39yo with SIUP at 34w2d who presented the evening of 05/08 with concern for loss of fluid. She was noted by Dr. Galloway to have gross rupture of membranes , but NIMISHA was 9cm and Amnisure testing was negative. She was started on Ampicillin, Nifedipine and given 1st dose of betamethasone. That first night, she continued to state that she was leaking fluid per vagina and RN noted she had pads changed that smell like urine and were completely soaked with yellow fluid (more than what would be expected for typical leaking with ROM). She had intermittent non-painful ctx. Given that patient had NIMISHA 9cm and negative Amnisure on admission, I requested for ultrasound and Amnisure to be repeated on 05/09. Repeat NIMISHA increased from 9cm to 10.1cm. Amnisure was again negative. SCE was 1/40/-3, amniotic sac palpable and no fluid return with very gentle ballotment Via Amharic phone navigation officer, I explicitly asked patient if she believed she was leaking fluid from her vagina which was soaking pads or if the fluid was urine. She was adamant that the fluid was coming from the vagina. I then called SUNITA Moore at [facility] and spoke to him about the entire clinical picture. He agreed that it seemed unlikely that patient had ROM given increase in NIMISHA and negative Amnisure. He recommended repeating testing am of 05/10, giving patient option to stay for observation or go home in the meantime. I then spoke with patient via Amharic phone navigation officer again, and gave her the two options. Since she has a history of home in 2019 at 35 weeks, she strongly desired to stay inpatient with repeat testing 05/10. Nifedipine and ampicillin were discontinued. She received 2nd dose of betamethasone the evening of 05/09. On the morning of 05/10, NIMISHA was repeated and is 8.5cm. At this time patient states she has had no further leaking. She has normal movement, no regular/painful ctx and no vaginal bleeding. She has remained afebrile and normotensive. FHRT remains Cat I with rare ctx. It is safe for discharge home. She had an appt scheduled to establish care with KECIA Warren on 05/09 that she missed while inpatient. She was instructed to re-schedule her appointment for this coming week and return precautions were discussed. Status at Discharge Functional status at discharge: independent ambulation Overall status at discharge: patient is back to baseline Time Spent with Patient Time attestation: Total time spent providing and/or coordinating discharge services: Exam Vital Signs Temp Pulse Resp BP Pulse Ox 98.7 F 77 17 102/59 L 96 05/10/25 08:08 05/10/25 08:08 05/10/25 08:08 05/10/25 08:08 05/10/25 08:51 Narrative Exam General: well developed, well nourished, no acute distress, conversant Cardiac: normal heart rate Lungs: breathing without distress Abdomen: soft, gravid, non-tender, no rebound or guarding Extremities: no edema BLE Discharge Plan Plan Patient Disposition: HOME (Self Care) Patient condition on transfer: Stable Prescriptions/Referrals Prescriptions/Med Rec: Continued PNV no.95-ferrous fumarate-FA [] 28 mg iron- 800 mcg tablet 1 tab PO DAILY Patient Comments: TAKE 1 TABLET BY MOUTH ONCE A DAY Referrals: Yasemin Warren CNM [Referring Provider] No Primary/Family,Physician [Primary Care Provider] Patient/Caregiver Discharge Instructions Discharge Activity: activity as tolerated Other Discharge Diet Instructions: regular diet Education Materials: Kick Counts, Antepartum Discharge Print Language: Amharic Activity Restrictions/Additional Instructions: follow up with KECIA Warren in the next week to establish care, call clinic to re- schedule appointment Stand Alone Forms: Yanira Award Info., Patient Portal Info Letter Discharge Order Discharge Orders: Discharge (Routine); Ordered 05/10/25 Ordered By: Lory Holt Planned Discharge Date 05/10/25 (2) Grand multiparity with problem Qualifiers: Trimester: third trimester Qualified Code(s): O09.43 - Supervision of with grand multiparity, third trimester
== END 2025-05-10 10:35 | disposition home or self-care (01) ==
PROVIDERS: Admitting Provider Obstetrics & Gynecology; Visit Provider Obstetrics & Gynecology
DX: O42.90 Premature rupture of membranes, unspecified as to length of time between rupture and onset of labor, unspecified weeks of gestation (principal); O09.43 Supervision of pregnancy with grand multiparity, third trimester; O09.523 Supervision of elderly multigravida, third trimester; O47.03 False labor before 37 completed weeks of gestation, third trimester; Z3A.33 33 weeks gestation of pregnancy
CPT/HCPCS: 36415; 59899; 76805; 76815; 80053; 80307; 81001; 82570; 82575; 84112; 84156; 85025; 86780; 86850; 86900; 86901; 96372; G0378; J0290; J0702; J7050; J7120; A9270

== ENCOUNTER 2025-05-13 08:42 | Outpatient (AMB) | payer MEDICAID, SELFPAY ==
[2025-05-13 08:59] VITALS: BP 105/67; PULSE 77; RESP 17; TEMP 36.6; O2SAT 97; BMI 29.7
--- NOTE | 2025-05-13 08:59 | AMB.OBINITIA ---
Vital Signs 05/13/25 08:59 Height 1.58 m Height Method Stated Weight 74.106 kg Weight Measurement Method Standing Scale BMI 29.7 BP 105/67 Blood Pressure Source Automatic Cuff Blood Pressure Location Right Upper Arm Position Sitting Respiration 17 Pulse 77 Pulse Source Monitor Temp 97.8 F Temp Source Temporal Artery Scan Pulse Oximetry (%) 97 Oxygen Delivery Method Room Air Allergies/Home Meds Allergies & Medications Allergies No Known Allergies Allergy (Verified 05/13/25 09:00) Medication Reconciliation vit no.95-ferrous fumarate 28 mg-folic acid 800 mcg tablet () 1 tab PO DAILY 05/08/25 [History Confirmed 05/13/25] Intake Visit Data Collection New Patient or Established: Established Patient (seen at [facility] within 3 years) Reason for Visit:: OB TRANSFER Seen by Clinical Staff ONLY (RN/MA): No It Consulting Director Required: No Do You Feel Safe at Home: Yes Authorities Contacted: N/A PCP or OBGYN visit in last 3 months: No Hx Now: Yes Are you currently on any form of Control: No Pain Present Currently: No Pain Scale Used: Low-Perkins/Numerical Pain scale:: 0 Smoking Status Smoking Status: Never smoker Questionnaires Covid-19 Vaccine Questionnaire Has patient been vacinated for Covid-19 Have you been vacinated for Covid-19: No PHQ-9 PHQ-2 Over the last 2 weeks, how often have you been bothered by any of the following problems? 1. Little interest or pleasure in doing things: not at all 2. Feeling down, depressed, or hopeless: not at all Total score: 0 PHQ-9 3. Trouble falling or staying asleep, or sleeping too much: Not at all 4. Feeling tired or having little energy: Not at all 5. Poor appetite or overeating: Not at all 6. Feeling bad about yourself - or that you are a failure or have let yourself or your family down: Not at all 7. Trouble concentrating on things, such as reading the newspaper or watching television: Not at all 8. Moving or speaking so slowly that other people could have noticed? - Or the opposite - being so fidgety or restless that you have been moving around a lot more than usual: not at all 9. Thoughts that you would be better off or of hurting yourself in some way: Not at all Total score: 0 If you checked off any problems, how difficult have these problems made it for you to do your work, take care of things at home, or get along with other people?: not difficult at all Source: Developed by Drs. Bacilio Fuller, Claire Emanuel, Jefry Hinkle and colleagues, with an educational colleen from [employer]. Depression screen completed yes Social History Living Situation History Marital Status: Lives With: Family Housing: Apartment Tobacco History Smoking Status: Never smoker Second Hand Smoke Exposure: No Alcohol History Alcohol Intake: Never Domestic Abuse History Do You Feel Safe at Home: Yes History of Present Illness HPI Narrative 39 Years old at gestational age 33.5 weeks ?based on last menstrual period of dated09/27/2024 . No complaints so far/ Possible SROM last week but Amniosure x2 negative and NIMISHA is normal received betamethasone x 2 Here for first visit/ transfer from Dr Elton ADAMS jul 2023 LMP 09/27/2024 Ultrasound o5/ / gives EDC of 06/22/2025 medical problems h/o kidney stones in the past Allergies Surgical history denies social history negative OB Ultrasound OB Ultrasound Ultrasound technique: transabdominal CONFECTIONERY MAKER: Past Medical History Past Medical History: No Hx Neurological Disorders, No Hx Cardiac Disorders, No Hx Cancer, No Hx Blood Disorders, No Hx Anemia, No Hx Gastrointestinal Disorders, No Hx Renal Disease, No Hx Diabetes Mellitus Type 1 and No Hx Diabetes Mellitus Type 2 OB Initial Visit OB Flowsheet OB Flowsheet Initial Weight: Not Recorded Date <del>?</del> EGA Weight BP Alb Glu CTX Pres Fundal ht FHR Mov Dilation Station Effacement Hx Notes Visit Note 05/13/25 <del>?</del> 33w 5d 74.106 kg 105/67 cephalic 34 141 active Menstrual History Menstrual reliability: definite Flow: normal Menstrual regularity: regular Monthly: Yes Age at menarche: 13 On control pills at conception: No OB History : 7 Para: 6 # of Living Children: 6 Delivery History 1st : Child's name: CORNELIO ORELLANA date: 09/11/22 sex: female Gestational age at delivery (weeks): 40 Delivery type: vaginal History of depression before or after : No 2nd : Child's name: KAE ORELLANA date: 03/13/05 sex: male Gestational age at delivery (weeks): 40 Delivery type: vaginal History of depression before or after : No 3rd : Child's name: MARISOL ORELLANA date: 10/04/07 sex: male Gestational age at delivery (weeks): 40 Delivery type: vaginal History of depression before or after : No 4th : Child's name: JHONATHAN ORELLANA date: 03/27/13 sex: male Gestational age at delivery (weeks): 40 Delivery type: vaginal History of depression before or after : No 5th : Child's name: JOAN ORELLANA date: 07/31/15 sex: female Gestational age at delivery (weeks): 40 Delivery type: vaginal History of depression before or after : No 6th : Child's name: ANIVAL PINEDA date: 04/03/19 sex: female Gestational age at delivery (weeks): 40 Delivery type: vaginal History of depression before or after : No Infection History & Risk Evaluation History of STDs: none HIV risk evaluation: low risk Hepatitis B risk evaluation: low risk Patient or partner has history of Genital Herpes: No Genetic Screening & History Genetic Screening/Teratology Counseling - Includes patient, baby's father, or anyone in either family with: 1. Patient's age 35 years or older as of estimated date of delivery: Yes 2. Thalassemia (Moldovan, Greenlandic, Mediterranean, or Background); MCV less than 80: No 3. Neural Tube Defect (Meningomyelocele, Spina Bifida, or Anencephaly): No 4. Congenital Heart Defect: No 5. Down Syndrome: No 6. Maxwell-Sachs (Ashkenazi Episcopalian, Cajun, Macedonian [place]): No 7. Campbell Disease (Ashkenazi Episcopalian): No 8. Familial Dysautonomia (Ashkenazi Episcopalian): No 9. Sickle Cell Disease or Trait (): No 10. Hemophilia or other blood disorders: No 11. Muscular Dystrophy: No 12. Cystic Fibrosis: No 13. Yaw's Chorea: No 14. Mental Retardation/Autism: No 15. Other inherited genetic or chromosomal disorder: No 16. Maternal Metabolic Disorder (EG,TYPE 1 Diabetes, PKU): No 17. Patient or baby's father had a child with defects not listed above: No 18. Recurrent loss or a stillbirth: No 19. Medications (including supplements, vitamins, herbs or otc drugs)/illicit/recreational drugs/alcohol since last menstrual period: No 20. Any other: No Infection History 1. Live with someone with TB or exposed to TB: No 2. Rash or viral illness since last menstrual period: No 3. Hepatitis B,C: No Other (see comments) Source: [employer] Review of Systems Review of Systems Systems Reviewed: All systems reviewed, normal except as documented Exam Narrative Physical exam: Alert and oriented x 3 no shortness of breath Pain no chest pain no palpitations Chest clear bilaterally no additional sounds, no wheezing no rales CVS regular rate and rhythm No CVAT Abdomen nontender, normal bowel sounds No guarding no rigidity No hernias Size equal to dates uterus non tender NO contractions non tender FHR is 141 feta presentation is vertex adequate amniotic fluid Results Objective Laboratory: O positive genetic screening negative i hour GTT is 136 RPR/HIV negative Imaging: today Adequate amniotic fluid on bedside , vertex / active baby and FHR is 141 Office Procedures O[facility] Clinic LOC & Office Proc's Nursing/Assessment Patient Status: Established Patient OB Clinic Nursing Assessment: Medication Reconciliation, Update PMH in EMR and Vital Signs OB Clinic Coordination of Care: Complex Care and Chronic Disease 1-5, Education Complex Pt/Fam, Consent,records obtained, informed consent, Results/Orders obtained and Staff clarify orders Special Needs: Heart tones Established Patient Charge Established Patient Point Assignment: 125 Established Patient Point Charge: EP Level 4 (120-155) Assessment & Plan Diagnosis / Problem List (1) : Status: Acute Plan: Assessment IUP at 33.5 weeks gestational age in a 39 years old G 7 P6 P additional diagnoses AMA , h/o renal stones Plan education/counselling Kick count labor precauions medications continue PNV immunization will review for T dap and flu next visit Follow up 1 week / check amniotic fluid (2) Advanced maternal age (AMA) in : Status: Acute (3) Grand multiparity with problem: Status: Acute Qualifiers: Trimester: third trimester Qualified Code(s): O09.43 - Supervision of with grand multiparity, third trimester
== END 2025-05-13 09:56 | disposition home or self-care (01) ==
PROVIDERS: Supervising Provider Obstetrics & Gynecology; Visit Provider Obstetrics & Gynecology
DX: O09.523 Supervision of elderly multigravida, third trimester (principal); O09.43 Supervision of pregnancy with grand multiparity, third trimester; Z3A.33 33 weeks gestation of pregnancy; Z87.442 Personal history of urinary calculi
CPT/HCPCS: 99214; G0463

== ENCOUNTER 2025-05-20 08:32 | Outpatient (AMB) | payer MEDICAID, SELFPAY ==
[2025-05-20 08:48] VITALS: BP 111/72; PULSE 71; RESP 14; TEMP 36.5; O2SAT 97; BMI 30.5
--- NOTE | 2025-05-20 08:48 | OBCLNT_ITS ---
Vital Signs 05/20/25 08:48 Height 1.58 m Height Method Stated Weight 76.26 kg Weight Measurement Method Standing Scale BMI 30.5 BP 111/72 Blood Pressure Source Automatic Cuff Blood Pressure Location Left Upper Arm Position Sitting Respiration 14 Pulse 71 Pulse Source Monitor Temp 97.7 F Temp Source Oral Pulse Oximetry (%) 97 Oxygen Delivery Method Room Air Allergies/Home Meds Allergies & Medications Allergies No Known Allergies Allergy (Verified 05/20/25 08:50) Medication Reconciliation vit no.95-ferrous fumarate 28 mg-folic acid 800 mcg tablet () 1 tab PO DAILY 05/08/25 [History Confirmed 05/20/25] Intake Visit Data Collection New Patient or Established: Established Patient (seen at [facility] within 3 years) Reason for Visit:: CARE Seen by Clinical Staff ONLY (RN/MA): No [employer] Supervisor Required: Yes [employer] Supervisor's name/title: TANMAY NORMANANYIJosé Do You Feel Safe at Home: Yes Authorities Contacted: N/A PCP or OBGYN visit in last 3 months: Yes Hx Now: Yes Are you currently on any form of Control: No Pain Present Currently: No Pain Scale Used: Low-Perkins/Numerical Pain scale:: 0 Smoking Status Smoking Status: Never smoker Immunizations Flu Vaccine in the Last 12 Months: No Questionnaires Covid-19 Vaccine Questionnaire Has patient been vacinated for Covid-19 Have you been vacinated for Covid-19: Yes PHQ-9 PHQ-2 Over the last 2 weeks, how often have you been bothered by any of the following problems? 1. Little interest or pleasure in doing things: not at all 2. Feeling down, depressed, or hopeless: not at all Total score: 0 PHQ-9 3. Trouble falling or staying asleep, or sleeping too much: Not at all 4. Feeling tired or having little energy: Not at all 5. Poor appetite or overeating: Not at all 6. Feeling bad about yourself - or that you are a failure or have let yourself or your family down: Not at all 7. Trouble concentrating on things, such as reading the newspaper or watching television: Not at all 8. Moving or speaking so slowly that other people could have noticed? - Or the opposite - being so fidgety or restless that you have been moving around a lot more than usual: not at all 9. Thoughts that you would be better off or of hurting yourself in some way: Not at all Total score: 0 Source: Developed by Drs. Bacilio Fuller, Claire Emanuel, Jefry Hinkle and colleagues, with an educational colleen from [employer]. 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 Past Medical History: No Hx Neurological Disorders, No Hx Cardiac Disorders, No Hx Cancer, No Hx Blood Disorders, No Hx Anemia, No Hx Gastrointestinal Disorders, No Hx Renal Disease, No Hx Diabetes Mellitus Type 1 and No Hx Diabetes Mellitus Type 2 Review of Systems Review of Systems Systems Reviewed: All systems reviewed, normal except as documented Care OB Visit Log OB Flowsheet Initial Weight: Not Recorded Date -?-?-?-?-?-?-?-?-?-?-?-?- EGA Weight BP Alb Glu CTX Pres Fundal ht FHR Mov Dilation Station Effacement Hx Notes Visit Note 05/13/25 -?-?-?-?-?-?-?-?-?-?-?-?- 33w 5d 74.106 kg 105/67 cephalic 34 141 active 05/20/25 -?-?-?-?--?-?-?-?-?-?-?-?- 34w 5d 76.26 kg 111/72 cephalic 35 144 a ctive CYNDI Calculator Estimated Delivery Date Method Current WG Current Estimate 06/26/25 LMP (Certain) 34w 5d Other Estimates 06/22/25 Ultrasound #1 35w 2d Notes Visit Date: 05/20/25 Last Updated by: Lory Galloway MD 39 years at 33.5 weeks by LMP and does not want BTL. She has likely urinary incontinence and she has occasional episodes of that . no continuous leakage Amniosure negative x 2 and today a single amniotic fluid pocket > 6 cm FHR is 144 bpm/ has no vaginal discharge or leak educated on kick count and also labor precautions / follow up in 2 weeks and plan GBS next visit No UC reviewed entire record from Dr Conde and also her last week in patient stay for possible PPROM which was ruled out educated on KICK count and labor precautions Genetic testing negative Rh positive and h/o renal stones AMA follow up in 1 week Visit Date: 05/13/25 Last Updated by: Lory Galloway MD 39 years at 33.5 weeks by LMP and does not want BTL. She has likely urinary incontinence and she has occasional episodes of that . no continuous leakage Amniosure negative x 2 and today a single amniotic fluid pocket > 6 cm FHR is 141 bpm No UC reviewed entire record from Dr Conde and also her last week in patient stay for possible PPROM which was ruled out educated on KICK count and labor precautions Genetic testing negative Rh positive and h/o renal stones AMA follow up in 1 week Exam Narrative Physical exam: Alert and oriented x 3 no shortness of breath Pain no chest pain no palpitations Chest clear bilaterally no additional sounds, no wheezing no rales CVS regular rate and rhythm No CVAT Abdomen nontender, normal bowel sounds No guarding no rigidity No hernias Office Procedures OBC Clinic LOC & Office Proc's Nursing/Assessment Patient Status: Established Patient OB Clinic Nursing Assessment: Medication Reconciliation, Update PMH in EMR and Vital Signs OB Clinic Coordination of Care: Complex Care and Chronic Disease 1-5, Consent,records obtained, informed consent, Education Simp Pt/Fam, 1 Ins Authorization, Lab and Imaging orders, Results/Orders obtained and Staff clarify orders Special Needs: Heart tones Established Patient Charge Established Patient Point Assignment: 150 Established Patient Point Charge: EP Level 4 (120-155) Assessment & Plan Additional Assessment 39 years old at 33.5 weeks / declines BTL No complaints routine care . folllow up in 2 weeks / educated kick count and labor precautions / states took flu vaccine and is taking her PNV/ follow up in 2 weeks and GBS next visit
== END 2025-05-20 09:34 | disposition home or self-care (01) ==
LOC: HODSOBC 08:32
PROVIDERS: Supervising Provider Obstetrics & Gynecology; Visit Provider Obstetrics & Gynecology
DX: O09.523 Supervision of elderly multigravida, third trimester (principal); Z3A.33 33 weeks gestation of pregnancy
CPT/HCPCS: 99214; G0463

== ENCOUNTER 2025-06-17 12:59 | Outpatient (AMB) | payer MEDICAID, SELFPAY ==
[2025-06-17 13:12] VITALS: BP 125/63; PULSE 82; RESP 16; TEMP 36.6; O2SAT 97; BMI 31.1
--- NOTE | 2025-06-17 13:12 | OBCLNT_ITS ---
Vital Signs 06/17/25 13:12 Height 1.58 m Height Method Stated Weight 77.734 kg Weight Measurement Method Standing Scale BMI 31.1 BP 125/63 Blood Pressure Source Automatic Cuff Blood Pressure Location Left Upper Arm Position Sitting Respiration 16 Pulse 82 Pulse Source Monitor Temp 97.8 F Temp Source Oral Pulse Oximetry (%) 97 Oxygen Delivery Method Room Air Allergies/Home Meds Allergies & Medications Allergies No Known Allergies Allergy (Verified 06/17/25 13:13) Medication Reconciliation vit no.95-ferrous fumarate 28 mg-folic acid 800 mcg tablet () 1 tab PO DAILY 05/08/25 [History Confirmed 06/17/25] vits no.126-ferrous fum 28 mg iron-folic acid 800 mcg tablet (Classic ) 1 tab PO DAILY 90 days #90 tabs 06/17/25 [Rx] Immunizations Immunizations Flu Vaccine in the Last 12 Months: No Flu Vaccine Exclusion Criteria: Refused by Patient Care OB Visit Log OB Flowsheet Initial Weight: Not Recorded Date -?-?-?-?-?-?-?-?-?-?-?-?- EGA Weight BP Alb Glu CTX Pres Fundal ht FHR Mov Dilation Station Effacement Hx Notes Visit Note 05/13/25 -?-?-?-?-?-?-?-?-?-?-?-?- 33w 5d 74.106 kg 105/67 cephalic 34 141 active 05/20/25 -?-?-?-?-?-?-?-?-?-?-?-?- 34w 5d 76.26 kg 111/72 cephalic 35 144 a ctive 06/05/25 -?-?-?-?-?-?-?-?-?-?-?-?- 37w 0d 76.657 kg 111/70 cephalic 37 144 active 1.5 -2 50 06/17/25 -?-?-?-?--?-?-?-?-?-?-?-?- 38w 5d 77.734 kg 125/63 cephalic 38 142 active CYNDI Calculator Estimated Delivery Date Method Current WG Current Estimate 06/26/25 LMP (Certain) 38w 6d Other Estimates 06/22/25 Ultrasound #1 39w 3d Notes Visit Date: 06/17/25 Last Updated by: Lory Galloway MD GBS negative / occasional contractions Plan pelvic exam next visit Visit Date: 06/05/25 Last Updated by: Lory Galloway MD GBS today and labor precautions /GBS today follow up in 1 week Visit Date: 05/20/25 Last Updated by: Lory Galloway MD 39 years at 33.5 weeks by LMP and does not want BTL. She has likely urinary incontinence and she has occasional episodes of that . no continuous leakage Amniosure negative x 2 and today a single amniotic fluid pocket > 6 cm FHR is 144 bpm/ has no vaginal discharge or leak educated on kick count and also labor precautions / follow up in 2 weeks and plan GBS next visit No UC reviewed entire record from Dr Conde and also her last week in patient stay for possible PPROM which was ruled out educated on KICK count and labor precautions Genetic testing negative Rh positive and h/o renal stones AMA follow up in 1 week Visit Date: 05/13/25 Last Updated by: Lory Galloway MD 39 years at 33.5 weeks by LMP and does not want BTL. She has likely urinary incontinence and she has occasional episodes of that . no continuous leakage Amniosure negative x 2 and today a single amniotic fluid pocket > 6 cm FHR is 141 bpm No UC reviewed entire record from Dr Conde and also her last week in patient stay for possible PPROM which was ruled out educated on KICK count and labor precautions Genetic testing negative Rh positive and h/o renal stones AMA follow up in 1 week Office Procedures OBC Clinic LOC & Office Proc's Nursing/Assessment Patient Status: Established Patient OB Clinic Nursing Assessment: Medication Reconciliation, Update PMH in EMR and Vital Signs OB Clinic Coordination of Care: AMA, Complex Care and Chronic Disease 1-5, Consent,records obtained, informed consent, Education Simp Pt/Fam, 1 Ins Authorization, Lab and Imaging orders, Results/Orders obtained and Staff clarify orders Special Needs: Heart tones Established Patient Charge Established Patient Point Assignment: 170 Established Patient Point Charge: EP Level 5 (160-above) Assessment & Plan Diagnosis / Problem List (1) : Status: Acute Qualifiers: Weeks of gestation: 38 weeks Qualified Code(s): Z3A.38 - 38 weeks gestation of (2) Advanced maternal age (AMA) in : Status: Acute Plan HISTORY OF PRESENT ILLNESS AI Consent obtained: I, Dr. Galloway, have obtained verbal consent from the patient, to be recorded during this encounter which may include, but not limited to, medical history, examination, treatment plans, and relevant health information. Patient was informed that recording will be read and reviewed by myself before inclusion in the medical chart. Recordings will be maintained in accordance with State and Federal law and only for a limited period of time for validation purposes, then destroyed and not retained. The patient presents for a visit. She is accompanied by an motor vehicle parts interpreter. Currently, she is 38 weeks and 5 days into her seventh . She reports satisfactory movement and no vaginal discharge. She has experienced minimal contractions. She has declined the influenza vaccine at this time but expresses willingness to receive it post-delivery. She has also declined tubal ligation. She is not experiencing any headaches, blurred vision, or chest pain. She has exhausted her supply of vitamins. REVIEW OF SYSTEMS Negative for headaches, blurred vision, or chest pain. PHYSICAL EXAM Vital Signs: Blood pressure is normal. Cardiovascular: heart rate is 142 bpm. Obstetric: Fundal height and heart tones were assessed. heart rate is 142 bpm. RESULTS Labs - Culture: Negative ASSESSMENT AND PLAN 1. visit: - She is currently 38 weeks and 5 days with her seventh child. She reports very little contractions and no vaginal leakage. - Blood pressure readings are within the normal range today. The heart rate is recorded at 142 beats per minute, and the estimated weight is approximately 7.5 pounds. - The culture test conducted last week yielded negative results. She has been advised to seek immediate medical attention at the hospital if she experiences rupture of membranes, decreased movement, or frequent contractions. - A prescription for vitamins will be provided today. Follow-up: The patient will follow up in 1 week.
== END 2025-06-17 13:41 | disposition home or self-care (01) ==
LOC: HODSOBC 12:59
PROVIDERS: Supervising Provider Obstetrics & Gynecology; Visit Provider Obstetrics & Gynecology
DX: O09.523 Supervision of elderly multigravida, third trimester (principal); Z3A.38 38 weeks gestation of pregnancy; O09.43 Supervision of pregnancy with grand multiparity, third trimester; Z28.21 Immunization not carried out because of patient refusal
CPT/HCPCS: 99215; G0463

== ENCOUNTER 2025-06-23 08:31 | Outpatient (AMB) | payer MEDICAID, SELFPAY ==
--- NOTE | 2025-06-23 08:43 | OBCLNT_ITS ---
Vital Signs 06/23/25 08:51 Height 1.58 m Height Method Stated Weight 78.018 kg Weight Measurement Method Standing Scale BMI 31.2 BP 115/71 Blood Pressure Source Automatic Cuff Blood Pressure Location Left Upper Arm Position Sitting Respiration 18 Pulse 84 Pulse Source Monitor Temp 97.2 F Temp Source Oral Pulse Oximetry (%) 98 Oxygen Delivery Method Room Air Allergies/Home Meds Allergies & Medications Allergies No Known Allergies Allergy (Verified 06/23/25 08:44) Medication Reconciliation vit no.95-ferrous fumarate 28 mg-folic acid 800 mcg tablet () 1 tab PO DAILY 05/08/25 [History Confirmed 06/23/25] vits no.126-ferrous fum 28 mg iron-folic acid 800 mcg tablet (Classic ) 1 tab PO DAILY 90 days #90 tabs 06/17/25 [Rx Confirmed 06/23/25] Immunizations Immunizations Flu Vaccine in the Last 12 Months: No Flu Vaccine Exclusion Criteria: Allergy to Eggs and No Exclusion Criteria Care OB Visit Log OB Flowsheet Initial Weight: Not Recorded Date -?-?-?-?-?-?-?-?-?-?-?-?- EGA Weight BP Alb Glu CTX Pres Fundal ht FHR Mov Dilation Station Effacement Hx Notes Visit Note 05/13/25 -?-?-?-?-?-?-?-?-?-?-?-?- 33w 5d 74.106 kg 105/67 cephalic 34 141 active 05/20/25 -?-?-?-?-?-?-?-?-?-?-?-?- 34w 5d 76.26 kg 111/72 cephalic 35 144 a ctive 06/05/25 -?-?-?-?-?-?-?-?-?-?-?-?- 37w 0d 76.657 kg 111/70 cephalic 37 144 active 1.5 -2 50 06/17/25 -?-?-?-?-?-?-?-?-?-?-?-?- 38w 5d 77.734 kg 125/63 cephalic 38 142 active 06/23/25 -?-?-?-?-?-?-?-?-?-?-?-?- 39w 4d 78.018 kg 115/71 cephalic 39 140 active 2.5 -2 50 intact CYNDI Calculator Estimated Delivery Date Method Current WG Current Estimate 06/26/25 LMP (Certain) 39w 4d Other Estimates 06/22/25 Ultrasound #1 40w 1d Notes Visit Date: 06/23/25 Last Updated by: Lory Galloway MD 39 years at 39.4 weeks by LMP and does not want BTL. She has likely urinary incontinence and she has occasional episodes of that . no continuous leakage/ GBS negative FHR is 140 bpm/ has no vaginal discharge or leak and has intact membranes / allergy to eggs and cannot take flu vaccine .Labor precautions / follow up in 1 week educated on kick count and also labor precautions / follow up in 2 weeks and plan GBS next visit No UC reviewed entire record from Dr Conde and also her last week in patient stay for possible PPROM which was ruled out educated on KICK count and labor precautions Genetic testing negative Rh positive and h/o renal stones AMA follow up in 1 week Visit Date: 05/13/25 Last Updated by: Lory Galloway MD 39 years at 33.5 weeks by LMP and does not want BTL. She has likely urinary incontinence and she has occasional episodes of that . no continuous leakage Amniosure negative x 2 and today a single amniotic fluid pocket > 6 cm FHR is 141 bpm No UC reviewed entire record from Dr Conde and also her last week in patient stay for possible PPROM which was ruled out educated on KICK count and labor precautions Genetic testing negative Rh positive and h/o renal stones AMA follow up in 1 week Visit Date: 06/17/25 Last Updated by: Lory Galloway MD GBS negative / occasional contractions Plan pelvic exam next visit Visit Date: 06/05/25 Last Updated by: Lory Galloway MD GBS today and labor precautions /GBS today follow up in 1 week Visit Date: 05/20/25 Last Updated by: Lory Galloway MD 39 years at 33.5 weeks by LMP and does not want BTL. She has likely urinary incontinence and she has occasional episodes of that . no continuous leakage Amniosure negative x 2 and today a single amniotic fluid pocket > 6 cm FHR is 144 bpm/ has no vaginal discharge or leak educated on kick count and also labor precautions / follow up in 2 weeks and plan GBS next visit No UC reviewed entire record from Dr Conde and also her last week in patient stay for possible PPROM which was ruled out educated on KICK count and labor precautions Genetic testing negative Rh positive and h/o renal stones AMA follow up in 1 week Visit Date: 05/13/25 Last Updated by: Lory Galloway MD 39 years at 33.5 weeks by LMP and does not want BTL. She has likely urinary incontinence and she has occasional episodes of that . no continuous leakage Amniosure negative x 2 and today a single amniotic fluid pocket > 6 cm FHR is 141 bpm No UC reviewed entire record from Dr Conde and also her last week in patient stay for possible PPROM which was ruled out educated on KICK count and labor precautions Genetic testing negative Rh positive and h/o renal stones AMA follow up in 1 week Office Procedures OBC Clinic LOC & Office Proc's Nursing/Assessment Patient Status: Established Patient OB Clinic Nursing Assessment: Medication Reconciliation, Update PMH in EMR and Vital Signs OB Clinic Coordination of Care: Consent,records obtained, informed consent, Education Simp Pt/Fam, Lab and Imaging orders, Results/Orders obtained and Staff clarify orders Special Needs: Heart tones Established Patient Charge Established Patient Point Assignment: 110 Established Patient Point Charge: EP Level 3 (80-115) Assessment & Plan Diagnosis / Problem List (1) : Status: Acute Qualifiers: Weeks of gestation: 38 weeks Qualified Code(s): Z3A.38 - 38 weeks gestation of (2) Advanced maternal age (AMA) in : Status: Acute Additional Plan Likely to go into spontaneous labor / If undelivered to come back in 1 week /Labor precautions given Follow Up: 1week
[2025-06-23 08:51] VITALS: BP 115/71; PULSE 84; RESP 18; TEMP 36.2; O2SAT 98; BMI 31.2
== END 2025-06-23 09:29 | disposition home or self-care (01) ==
PROVIDERS: Supervising Provider Obstetrics & Gynecology; Visit Provider Obstetrics & Gynecology
DX: O09.523 Supervision of elderly multigravida, third trimester (principal); O09.43 Supervision of pregnancy with grand multiparity, third trimester; Z3A.39 39 weeks gestation of pregnancy; Z91.0120 Allergy to eggs, unspecified
CPT/HCPCS: 99213; G0463

== ENCOUNTER 2025-06-29 04:40 | Inpatient (IN) | payer MEDICAID, SELFPAY ==
[2025-06-29] VITALS (23 sets, daily range): BP systolic 99–184; BP diastolic 57–91; PULSE 67–133; RESP 18–98; TEMP 36.8–37.2; O2SAT 86–99; BMI 35.9
[2025-06-29] MEDS: OXYTOCIN in NS 20 units 20 UNIT/1,000 ML BAG 125 UNIT IV ×2 (05:56→15:53)
[2025-06-29] MEDS: BENZO/LANO/ALOE (Dermoplast) 60 GM CAN 1 SPRAY TOP (06:09)
[2025-06-29] MEDS: IBUPROFEN TAB 400 MG TABLET 800 MG PO ×2 (06:09→18:02)
--- NOTE | 2025-06-29 06:46 | ESHP_ITS ---
Documentation for date of: 06/29/25 OB Labor/Induct. HPI History of Present Illness Chief complaint: Active labor : 7 Para: 6 Term pregnancies: 5 pregnancies: 1 Living children: 6 History of Abortions: Spontaneous and Elective: 0 History of Vaginal deliveries: 6 History of sections: No History of : No CYNDI: 07/04/25 Gestational Age (weeks): 39 Gestational Age (days): 1 History of present illness: Patient is a 39-year-old -1-0-6 who presented in active labor 8 to 9 cm to triage. care was started with Dr. Conde and transferred to the [facility]. Group B strep is negative History of Present Dating criteria: LMP confirmed by 2nd trimester US Adequate Care: Yes Ultrasounds: normal mid trimester US Obstetrical complications: other (Grand multiparity) Medical complications: none Labs Maternal Blood Type: O Pos Labs: Negative: RPR, Rubella Titre (Rubella nonimmune), Chlamydia, Gonorrhea and Group Beta Strep and Unknown: Hepatitis B, HIV, Herpes Type 1, Herpes Type 2 and Covid-19 Past Medical History Surgical History SURGICAL: Negative Section Meds Home Medications and Allergies Home Medications ?Medication ?Instructions ?Recorded ?Confirmed ?Type vit no.95-ferrous 1 tab PO DAILY 05/08/25 History fumarate 28 mg-folic acid 800 mcg tablet () Allergies Allergy/AdvReac Type Severity Reaction Status Date / Time No Known Allergies Allergy Verified 06/29/25 04:58 OB Exam Physical Exam Vital signs: Temp Pulse Resp BP Pulse Ox 98.2 F 72 18 124/57 L 86 L 06/29/25 04:59 06/29/25 06:45 06/29/25 04:59 06/29/25 06:45 06/29/25 05:04 Detailed Labor and Delivery Exam Dilation (cm): 8-9 Effacement (%): 90 Cervix position: mid station: -2 Consistency: medium Presentation: Vertex Membranes: intact Amniotic fluid: clear monitor accelerations: 15x15 monitor decelerations: None assisted variability: Moderate (06-24) Contraction frequency (min): Every 3 minutes Tachysystole: No Contraction intensity: Strong OB Assessment & Plan Assessment and Plan (1) Advanced maternal age (AMA) in : Status: Acute (2) Supervision of high risk in third trimester: Status: Acute Assessment and plan: Admit patient anticipate . (3) Grand multiparity in labor and delivery: Status: Acute Assessment and plan: hemorrhage precautions. Additional Plan Induction method: none Plan: anticipate NVD
[2025-06-29 09:10] LABS: Basophils # (Auto) 0.0 Thou/mm3 (0.0-0.2); Basophils % (Auto) 0 % (0-2.5); Eosinophils # (Auto) 0.1 Thou/mm3 (0.0-0.5); Eosinophils % (Auto) 1 % (0-10); Hematocrit 38.1 % (36.0-46.0); Hemoglobin 12.4 g/dL (12.0-16.0); Immature Granulocytes Auto 0.12 Thou/mm3 (0.00-0.00); Lymphocytes # (Auto) 2.3 Thou/mm3 (1.0-4.8); Lymphocytes % (Auto) 24 % (10-50); Mean Corpuscular HGB Conc 32.5 g/dl (31.0-37.0); Mean Corpuscular Hemoglobin 28.8 pg (25.0-35.0); Mean Corpuscular Volume 88 fL (80-100); Monocytes # (Auto) 0.5 Thou/mm3 (0.0-0.8); Monocytes % (Auto) 5 % (0-12); Neutrophils # (Auto) 6.6 Thou/mm3 (1.8-7.7); Neutrophils % (Auto) 69 % (37-80); Nucleated Red Blood Cell # 0.00 Thou/mm3 (0.00-0.00); Nucleated Red Blood Cell % 0 /100 WBC (0); Platelet Count 237 Thou/mm3 (140-440); RDW Standard Deviation 43.8 fL (36.4-46.3); Red Blood Count 4.31 Miln/mm3 (4.00-5.20); White Blood Count 9.5 Thou/mm3 (3.6-11.0)
[2025-06-29 09:49] LABS: Syphilis Nonreactive (Nonreactive)
[2025-06-29] MEDS: DOCUSATE SOD 100 MG CAPSULE PO ×2 (09:51→21:34)
[2025-06-29] MEDS: PRENATAL VITAMIN/FE FUM/FA TABLET 1 TAB PO (09:51)
[2025-06-29 14:40] LABS: Basophils # (Auto) 0.0 Thou/mm3 (0.0-0.2); Basophils % (Auto) 0 % (0-2.5); Eosinophils # (Auto) 0.0 Thou/mm3 (0.0-0.5); Eosinophils % (Auto) 0 % (0-10); Hematocrit 29.2 % (36.0-46.0); Hemoglobin 9.8 g/dL (12.0-16.0); Immature Granulocytes Auto 0.13 Thou/mm3 (0.00-0.00); Lymphocytes # (Auto) 1.6 Thou/mm3 (1.0-4.8); Lymphocytes % (Auto) 10 % (10-50); Mean Corpuscular HGB Conc 33.6 g/dl (31.0-37.0); Mean Corpuscular Hemoglobin 29.4 pg (25.0-35.0); Mean Corpuscular Volume 88 fL (80-100); Monocytes # (Auto) 0.8 Thou/mm3 (0.0-0.8); Monocytes % (Auto) 5 % (0-12); Neutrophils # (Auto) 12.8 Thou/mm3 (1.8-7.7); Neutrophils % (Auto) 84 % (37-80); Nucleated Red Blood Cell # 0.00 Thou/mm3 (0.00-0.00); Nucleated Red Blood Cell % 0 /100 WBC (0); Platelet Count 239 Thou/mm3 (140-440); RDW Standard Deviation 43.2 fL (36.4-46.3); Red Blood Count 3.33 Miln/mm3 (4.00-5.20); White Blood Count 15.3 Thou/mm3 (3.6-11.0)
[2025-06-29] MEDS: METHYLERGONOVINE 0.2 MG TABLET PO ×2 (15:47→21:35)
[2025-06-30 04:05] VITALS: BP 123/72; PULSE 98; RESP 18; TEMP 36.9; O2SAT 97
[2025-06-30 05:59] VITALS: BP 123/72; PULSE 98
[2025-06-30] MEDS: METHYLERGONOVINE 0.2 MG TABLET PO (05:59)
[2025-06-30 07:15] VITALS: BP 106/92; PULSE 81; RESP 17; TEMP 36.7; O2SAT 97
--- NOTE | 2025-06-30 07:27 | OBDSUM_ITS ---
Data ([facility]) Data Hx Section: No Maternal Blood Type: O Pos Rubella Titre: Negative RPR: Non-reactive Labs: Negative: RPR, Hepatitis B, HIV, Chlamydia, Gonorrhea and Group Beta Strep : 7 Term: 5 : 1 Livin Abortions: Spontaneous & Theraputic: 0 Delivery Data ([facility]) Labor Data Initiation of labor: Spontaneous Induction/Augmentation Agent: None ROM date: 06/29/25 ROM time: 05:31 Amniotic membrane rupture type: Spontaneous Amniotic fluid description: Blood Tinged Delivery Data EDC: 06/26/25 EDC calculated by:: LMP/early US confirmation Date of arrival to unit: 06/29/25 Onset of labor date: 06/29/25 Complete dilation date: 06/29/25 Complete dilation time: 05:37 delivery date: 06/29/25 delivery time: 05:51 Gestational age (weeks): 40 Gestational age (days): 3 Placenta delivery date: 06/29/25 Placenta delivery time: 05:57 Delivered by: Laura Smith (OB Clinic) Delivery nurse: Mera Wick RN [place] nurse: Lavinia Ko RN Soil And Plant Scientist at delivery: No Support person(s) at delivery: FOB Delivery Method Delivery method: Normal Vaginal Delivery Presentation: Vertex position: OA Anesthesia Type Anesthesia Type: None Delivery Room Medications Delivery room medications: Pitocin 20 u IV Placenta Placenta delivery description: Spontaneous Cord blood sent to lab: Yes cord blood collection: Cord Blood Type Episiotomy Episiotomy description: None EBL Estimated blood loss (ml): 100 Umbilical Cord cord description: 3 Vessels Additional Procedures Patient is a 39-year-old G7, P5 who presented to labor and delivery in the middle of the night 06/29/2025 in active labor about 8 cm dilated. She was admitted. Group B Strep was negative. She rapidly progressed to complete without the aid of Pitocin or any augmentation by 0537. She felt pressure and began pushing approximately 10 minutes later. She pushed through 2-3 contractions delivering a liveborn male at 0551 on 06/29/2025. Findings: liveborn male in the VANESA presentation with no nuchal cord or meconium. Apgars were 9 and 9. Weight was 9 pounds 2 ounces. The placenta was complete ,spontaneous,and grossly normal delivering within 5 minutes of the baby delivering. Of note, since the infant was vigorous at , he was placed directly on mother's chest and delayed cord clamping was performed for 3 minutes. The cord was then clamped and cut and the infant stayed on mother's chest for skin to skin contact. Once the placenta delivered, her perineum was examined and found to be intact. Complications were none. Condition: both mom and were in stable condition delivery room. EBL was 100 cc. Complications Complications: None [place] Data ([facility]) [place] Data order: 1 [place]'s gender: Male Identification band number: [id number] weight (gms): 4130 g Weight (pounds): 9 lbs and 1.7 ozs [place] length: 54.61 cm 1 minute: 9 5 minutes: 9
[2025-06-30 08:15] LABS: Basophils # (Auto) 0.0 Thou/mm3 (0.0-0.2); Basophils % (Auto) 0 % (0-2.5); Eosinophils # (Auto) 0.1 Thou/mm3 (0.0-0.5); Eosinophils % (Auto) 1 % (0-10); Hematocrit 25.9 % (36.0-46.0); Immature Granulocytes Auto 0.15 Thou/mm3 (0.00-0.00); Lymphocytes # (Auto) 2.6 Thou/mm3 (1.0-4.8); Lymphocytes % (Auto) 23 % (10-50); Mean Corpuscular HGB Conc 33.2 g/dl (31.0-37.0); Mean Corpuscular Hemoglobin 28.9 pg (25.0-35.0); Mean Corpuscular Volume 87 fL (80-100); Monocytes # (Auto) 0.6 Thou/mm3 (0.0-0.8); Monocytes % (Auto) 5 % (0-12); Neutrophils # (Auto) 7.7 Thou/mm3 (1.8-7.7); Neutrophils % (Auto) 69 % (37-80); Nucleated Red Blood Cell # 0.00 Thou/mm3 (0.00-0.00); Nucleated Red Blood Cell % 0 /100 WBC (0); Platelet Count 200 Thou/mm3 (140-440); RDW Standard Deviation 43.1 fL (36.4-46.3); Red Blood Count 2.98 Miln/mm3 (4.00-5.20); White Blood Count 11.2 Thou/mm3 (3.6-11.0)
[2025-06-30 08:19] LABS: Hemoglobin 8.6 g/dL (12.0-16.0)
[2025-06-30] MEDS: PRENATAL VITAMIN/FE FUM/FA TABLET 1 TAB PO (08:19)
[2025-06-30] MEDS: IBUPROFEN TAB 400 MG TABLET 800 MG PO (08:19)
[2025-06-30] MEDS: DOCUSATE SOD 100 MG CAPSULE PO (08:19)
--- NOTE | 2025-06-30 10:29 | ESPR_ITS ---
Subjective Subjective Interval history: The patient is a 39-year-old -0-0-7 day #1 status post vaginal delivery yesterday morning 06/29/2025 approximately 6 AM. Her son weighed 9 pounds 2 ounces. This morning patient is resting at bedside sitting up and breast-feeding. She had passed couple clots after delivery and her predelivery hemoglobin is 12.4, her post postdelivery hemoglobin is 8.6. The patient denies any heavy bleeding now. She did not have any stitches. She is voiding, tolerating a general diet ,and ambulating without difficulty. Of note the patient is [place]ian-speaking only and the entire interview and physical exam is conducted with Paige, labor and delivery crew member at bedside. Exam Vital Signs Temp Pulse Resp BP Pulse Ox O2 Del Method 98.1 F 81 17 106/92 H 97 Room Air 06/30/25 07:15 06/30/25 07:15 06/30/25 07:15 06/30/25 07:15 06/30/25 07:15 06/30/25 07:15 Narrative Exam Patient is alert and orient x 3 in no apparent distress. Fundus is firm nontender at umbilicus. Extremities show no significant edema or erythema. Objective Labs 06/30/25 07:38 Labs: Laboratory Results - last 24 hr 06/29/25 06/29/25 06/30/25 05:11 13:13 07:38 WBC 15.3 H D 11.2 H RBC 3.33 L 2.98 L Hgb 9.8 L D 8.6 L Hct 29.2 L 25.9 L MCV 88 87 MCH 29.4 28.9 MCHC 33.6 33.2 RDW Std Deviation 43.2 43.1 Plt Count 239 200 D Neut % (Auto) 84 H 69 Lymph % (Auto) 10 23 Hinds % (Auto) 5 5 Eos % (Auto) 0 1 Baso % (Auto) 0 0 Neut # (Auto) 12.8 H 7.7 Lymph # (Auto) 1.6 2.6 Hinds # (Auto) 0.8 0.6 Eos # (Auto) 0.0 0.1 Baso # (Auto) 0.0 0.0 Immature Gran # (Auto) 0.13 H 0.15 H Absolute Nucleated RBC 0.00 0.00 Immature Gran % 1 H 1 H Nucleated RBC % 0 0 Blood Type O Positive Antibody Screen NEGATIVE Blood Bank Wristband ID Yes Assessment & Plan Problem List (1) Advanced maternal age (AMA) in : Status: Acute (2) Supervision of high risk in third trimester: Status: Acute (3) Grand multiparity in labor and delivery: Status: Acute (4) care following vaginal delivery: Status: Acute Assessment and plan: Patient will be discharged home day #1 in stable condition. Discharge medications could ibuprofen and Tylenol. Discharge instructions include pelvic rest x 6 weeks. Time Spent With Patient Time: Total time spent is greater than 50% in coordination of care (as documented) at patient's floor/unit and/or counseling patient: Time with patient: less than 15 minutes
--- NOTE | 2025-06-30 10:35 | PD.LDDS ---
DS: Providers Provider Date of admission: 06/29/25 05:44 Primary care physician: Physician No Primary/Family Admitting Provider: Laura [facility] ([facility]) Attending Provider on Admission: Yasemin Warren CNM Consults: 06/29/25 06:58 Referral Routine Comment: Attending Provider on DC: Laura Smith MD ([facility]) Discharging Provider: Laura Smith MD ([facility]) Anticipated date of discharge: 06/30/25 DS: Diagnosis Discharge Diagnosis (1) care following vaginal delivery: Status: Acute Assessment & Plan: Patient is doing well. Discharged home postoperative day #1 in stable condition. Discharge instructions include pelvic rest x 6 weeks. Problem List Completed Was Problem List Reviewed/Reconciled?: Yes Summary/Hosp Course Brief History: Patient is a 39-year-old -1-0-6 who presented in active labor 8 to 9 cm to triage. care was started with Dr. Conde and transferred to the [facility]. Group B strep is negative. He was admitted by Dr Smith 06/29/2025 and went on to deliver approximately 6:00 in the morning 06/29/2025. Please see history and physical and delivery note for further details. day #1 patient was doing well with no complaints she was not bleeding heavily she was tolerating general diet and voiding and passing flatus. Her pain was controlled with oral pain medications. She was discharged home post day #1 in stable condition. Peripartum Data Delivery Method: Normal Vaginal Delivery Episiotomy Description: None Laceration Description: see Delivery Summary complications: none Status at Discharge Cognitive/behavioral status at discharge: Patient is alert and orient x 3 in no apparent distress. Functional status at discharge: independent ambulation Overall status at discharge: patient is progressing back to baseline Time Spent with Patient Time attestation: Total time spent providing and/or coordinating discharge services: Time spent: Less than 30 minutes Specific discharge activities: Pelvic rest x 6 weeks. No intercourse tampons douching or bathtubs x 6 weeks. Exam Vital Signs Temp Pulse Resp BP Pulse Ox O2 Del Method 98.1 F 81 17 106/92 H 97 Room Air 06/30/25 07:15 06/30/25 07:15 06/30/25 07:15 06/30/25 07:15 06/30/25 07:15 06/30/25 07:15 Narrative Exam Patient is alert and orientated x 3. She is in no apparent distress. Fundus is firm nontender. Extremities show no significant edema or erythema. Discharge Plan Plan Patient Disposition: HOME (Self Care) Patient condition on transfer: Stable Prescriptions/Referrals Prescriptions/Med Rec: New acetaminophen 325 mg Tablet 650 mg PO Q4H PRN (Reason: See Comments) Qty: 20 0RF ibuprofen 400 mg Tablet 800 mg PO Q8H PRN (Reason: See Comments) Qty: 30 0RF docusate sodium 100 mg Capsule 100 mg PO BID Qty: 30 0RF Vitamin 27 mg iron- 800 mcg Tablet 1 tab PO DAILY Qty: 3 0RF Continued PNV no.95-ferrous fumarate-FA [] 28 mg iron- 800 mcg tablet 1 tab PO DAILY Patient Comments: TAKE 1 TABLET BY MOUTH ONCE A DAY Referrals: No Primary/Family,Physician [Primary Care Provider] Patient/Caregiver Discharge Instructions Discharge Activity: activity as tolerated Other Discharge Activity Instructions:: Pelvic rest x 6 weeks. No intercourse tampons douching or bathtubs x 6 weeks. Other Discharge Diet Instructions: High iron diet. Education Materials: After Delivery Concerns, Anemia During , : Caring for Yourself, Feel Healthy After Print Language: Jordanian Activity Restrictions/Additional Instructions: Pelvic rest x 6 weeks. No intercourse tampons douching or bathtubs x 6 weeks. Stand Alone Forms: [facility] Award Info., Patient Portal Info Letter Discharge Order Discharge Orders: Discharge (Routine); Ordered 06/30/25 Ordered By: Laura Smith ([facility]) Planned Discharge Date 06/30/25
== END 2025-06-30 13:30 | disposition home or self-care (01) | DRG 560 ==
LOC: S4SX 09:00 → S4NX 09:46
PROVIDERS: Admitting Provider Obstetrics & Gynecology; Visit Provider Advanced Practice Midwife
DX: O80 Encounter for full-term uncomplicated delivery (principal); Z37.0 Single live birth; Z3A.39 39 weeks gestation of pregnancy
CPT/HCPCS: 36415; 59409; 80307; 85025; 86780; 86850; 86900; 86901; 94762; J2590; A9270